=== PATIENT | female | born 1970 | race Caucasian/White ===

== ENCOUNTER → 2019-07-14 | Outpatient (CLI) | payer BC | LOC: MC.RAD 10:50 | DX: Z12.31 Encounter for screening mammogram for malignant neoplasm of breast (principal); N63.10 Unspecified lump in the right breast, unspecified quadrant ==

== ENCOUNTER → 2019-07-21 | Outpatient (CLI) | payer BC | LOC: MC.RAD 12:49 | DX: N63.10 Unspecified lump in the right breast, unspecified quadrant (principal) ==

== ENCOUNTER → 2019-07-28 | Outpatient (CLI) | payer BC | LOC: MC.RAD 12:52 | DX: D24.1 Benign neoplasm of right breast (principal); Z98.82 Breast implant status | CPT/HCPCS: 30634 ==

== ENCOUNTER → 2020-08-16 | Outpatient (CLI) | payer BC | LOC: MC.RAD 14:16 | DX: Z12.31 Encounter for screening mammogram for malignant neoplasm of breast (principal); Z98.82 Breast implant status ==

== ENCOUNTER → 2021-09-23 | Outpatient (CLI) | payer BC | LOC: MC.RAD 14:07 | DX: Z12.31 Encounter for screening mammogram for malignant neoplasm of breast (principal) ==

== ENCOUNTER → 2022-12-18 | Outpatient (CLI) | payer BC | LOC: MC.RAD 11-11 09:15 | DX: Z12.31 Encounter for screening mammogram for malignant neoplasm of breast (principal) ==

== ENCOUNTER 2023-08-10 15:12 | Observation (INO) | payer BC ==
[~2023-08-10] VITALS: Ht 175.3 cm; Wt 64.8 kg
[2023-08-30] VITALS (11 sets, daily range): BP systolic 98–120; BP diastolic 43–72; PULSE 59–95; TEMP 97.6–98.3
[2023-08-30] MEDS ORDERED: ESTRACE 1MG1 MG/TAB PO (11:06)
[2023-08-30] MEDS ORDERED: HAIRSKINNAILS PO (11:07)
[2023-08-30] MEDS ORDERED: B-121000 MCG PO (11:08)
[2023-08-30] MEDS ORDERED: OMEGA-3 1000 MG1 CAP PO (11:08)
[2023-08-30] MEDS ORDERED: PROBIOTIC BLEN1 EACH PO (11:08)
--- NOTE | 2023-08-30 11:36 | NUR ---
PATIENT AMBULATED TO BAY 2 WITH STEADY GAIT. ALERT AND ORIENTED X4. PATIENT STATED UNDERSTANDING OF PROCEDURE. CONSENTS SIGNED. ASSESSMENT COMPLETED. 20G IV STARTED IN RIGHT AC. LR INFUSING WITHOUT DIFFICULTIES. WARM BLANKET PROVIDED. NO FURTHER NEEDS NOTED. RESTING IN COT. CALL LIGHT IN REACH. AT BEDSIDE.
--- NOTE | 2023-08-30 16:55 | NUR ---
PT ARRIVED TO FLOOR FROM PACU AT 1610. VITALS ARE STABLE. PT RATES PAIN 5/10 IN THE ABDOMEN. GAVE OXYCODONE FOR PAIN. INSICION SIGHTS ARE CLEAN DRY INTACT WITH NO DRESSINGS. PT IS WEARING SCD'S. TOLERATING ICE AND WATER. PT PLANS TO ORDER DINNER TONIGHT. PT IS AWARE THAT SHE CANNOT HAVE STRAWS OR CARBONATION. CALL LIGHT WITHIN REACH.
--- NOTE | 2023-08-30 19:53 | NUR ---
report received from kavya thompson. pt resting in bed with at bedside. pt does report 4/10 pain to the abd. call light in place. all needs met at this time.
--- NOTE | 2023-08-30 20:51 | NUR ---
shift assessment complete, see documentation. pt reports abd pain. prn oxycodone administered per orders. pt ambulated to bathroom, steady gait. call light in place. all needs met at this time.
[2023-08-31] VITALS (11 sets, daily range): BP systolic 99–116; BP diastolic 64–69; PULSE 66–79; TEMP 98.1–98.7
--- NOTE | 2023-08-31 06:01 | NUR ---
pt reporting 7/10 abd pain after ambulation. prn oxycodone administered per orders.
[2023-08-31 06:59] LABS: BASO % 0.2 % (0.0-2.0); GRAN # 10.8 K/mm3 (1.4-6.5); GRAN % 87.3 % (42.2-75.2); HEMATOCRIT 39.3 % (37.0-47.0); HEMOGLOBIN 12.7 g/dl (12.5-16.0); LYMPH # 0.9 K/mm3 (1.2-3.4); MEAN CELL VOLUME 91 fl (80.0-100.0); MEAN CORPUSCULAR HEMOGLOBIN 29 pg (27-31); MEAN CORPUSCULAR HGB CONC 32 g/dl (33.0-37.0); MEAN PLATELET VOLUME 11.5 fl (7.4-10.4); MONO # 0.6 K/mm3 (0.1-0.6); PLATELET COUNT 172 K/mm3 (130-400); RED BLOOD COUNT 4.32 M/mm3 (4.10-5.30)
[2023-08-31 07:21] LABS: CALCIUM 8.9 mg/dL (8.4-10.2); CREATININE, serum 0.76 mg/dL (0.57-1.11); POTASSIUM 3.4 mmol/L (3.5-4.5)
--- NOTE | 2023-08-31 09:49 | NUR ---
PT LAYIGN IN BED, ALERT AND ORIENTEDX3. PT RATES PAIN 7/10 IN THE ABDOMEN. PT ASKING FOR MORE PAIN MEDICATIONS, BUT NONE ARE DUE YET. GAVE IBUPROFEN. DRESSING ARE CLEAN DRY INTACT. NO DRESSINGS. ASSESSED ADN GAVE MORNIGN MEDS. CALL LIGHT WITHIN REACH.
--- NOTE | 2023-08-31 11:50 | NUR ---
D: Initial visit: Graphics Artist stopped by room on rounds. Pt was resting and content. A: Pt has no needs right now. P: Graphics Artist informed pt that if she needed anything to let her nurse know. Graphics Artist will follow up as needed.
--- NOTE | 2023-08-31 15:41 | NUR ---
making line worker spoke with patient regarding discharge planning. [facility] [place] [facility] [phone]. Pt sees [facility] and obtains medications from [facility] with no difficulties. Pt has no DME and is independent with all ADLS. Pt declined a DPOA-HC at this time. Discharge Plan: Home
--- NOTE | 2023-08-31 19:03 | NUR ---
report received from kavya thompson. pt resting in bed with at bedside. pt just finished dinner and received pain meds from previous shift. call light in place. all needs met at this time.
--- NOTE | 2023-08-31 21:55 | NUR ---
shift assessment complete, see documentation. pt reports some discomfort but states she is doing better than last night. pt remains with steady gait. call light in place. all needs met at this time.
[2023-09-01] VITALS (9 sets, daily range): BP systolic 100–109; BP diastolic 56–70; PULSE 70–89; TEMP 98–98.5
--- NOTE | 2023-09-01 00:32 | NUR ---
pt reporting increased abd pain. prn oxycodone administered per orders. call light in place. all needs met at this time.
--- NOTE | 2023-09-01 04:17 | NUR ---
pt reporting 7/10 abd pain to the right side. prn oxycodone administered with scheduled tylenol. call light in reach. all needs met at this time.
--- NOTE | 2023-09-01 08:00 | NUR ---
Stand by assist ambulation approximately six minutes around surgical unit area loop. Tolerated with soreness to abdominal region rated at 2/10. Returned to bed and goal set to try walking again at 1000. Pt educated on importance of walking after surgery and with oxycodone use to prevent constipation.
[2023-09-01] MEDS ORDERED: TYLENOL 500MG500 MG PO (10:35)
[2023-09-01] MEDS ORDERED: ROXICODONE 55 MG/TAB PO (10:36)
--- NOTE | 2023-09-01 10:48 | NUR ---
Pt. sitting up in Chair. Pt. is A&OX3, assessment complete. INT to rt. ac patent. Pt. reports pain at a 5 on pain scale, gave Tylenol per orders. Abd. incisions well approximated. Pt has ambulated in the [place] with the student [employer] BU[employer]PER[employer] twice today. Pt. denies further needs. call light [facility].
--- NOTE | 2023-09-01 16:08 | NUR ---
Pt. ready for discharge. INT discontinued from rt. ac. Reveiewed and gave discharge paperwork to the pt. Pt. voices understanding. Pt. dressed and escorted out.
== END 2023-09-01 16:08 | disposition home or self-care (01) ==
LOC: SDCO 08-30 10:34 → SURG 08-30 10:34 → SDCO 08-30 10:35 → SURG 08-30 10:35 → EDSTATUS 08-30 12:30 → SDCO 08-30 12:30 → SURG 08-30 16:10 → SDCO 08-30 16:10 → SURG 08-30 16:11 → SDCO 09-01 10:14 → SURG 09-01 10:14 → SDCO 09-01 10:15 → SURG 09-01 16:08
PROVIDERS: ADMIT Surgery
DX: K38.1 Appendicular concretions (principal); K38.8 Other specified diseases of appendix; N94.89 Other specified conditions associated with female genital organs and menstrual cycle
CPT/HCPCS: OP; A9284; G0378; J0330; J0690; J1100; J1170; J1650; J1885; J2405; J2704; J3010; J7120

== ENCOUNTER → 2024-02-04 | Outpatient (CLI) | payer BC ==
[~2024-02-04] MED LIST: B-121000 MCG PO; ESTRACE 1MG1 MG/TAB PO; HAIRSKINNAILS PO; OMEGA-3 1000 MG1 CAP PO; PROBIOTIC BLEN1 EACH PO; ROXICODONE 55 MG/TAB PO; TYLENOL 500MG500 MG PO
== END ==
LOC: MC.RAD 09:56
DX: Z12.31 Encounter for screening mammogram for malignant neoplasm of breast (principal)